=== PATIENT | male | born 1970 | race Caucasian/White ===

== ENCOUNTER 2023-12-20 04:06 | Day surgery (SDC) | payer OTHER ==
[~2023-12-20] VITALS: Ht 182.9 cm; Wt 102.3 kg
[2023-12-20] VITALS (218 sets, daily range): BP systolic 87–169; BP diastolic 44–129
--- NOTE | 2023-12-20 07:00 | NUR ---
Patient arrived to the ANR suite, identification and demographics confirmed. Patient to room 9, AAO, ambulatory, vitals obtained, ID/allergy/fall bands placed, changed into hospital gown, ARUN hose, and non-slip socks. Procedure and timeline explained for treatment and discharge. All questions answered and the patient presents no concerns at this time.
[2023-12-20] MEDS ORDERED: SCOPOLAMINE 1.5 MG DIS TD PRN (07:30)
[2023-12-20] MEDS ORDERED: PANTOPRAZOLE SODIUM Sesquihydr 40 MG/TAB PO PRN (07:30)
[2023-12-20] MEDS ORDERED: ALBUTEROL SULFATE 2.5 MG VIAL IN PRN (07:30)
[2023-12-20] MEDS ORDERED: LACTATED RINGER'S 1,000 ML IV PRN ×3 (07:30→19:00)
[2023-12-20] MEDS ORDERED: diazePAM 5 MG/TAB PO PRN ×2 (07:30→08:30)
[2023-12-20] MEDS ORDERED: cloNIDine HCL 0.1 MG/TAB PO PRN (07:30)
[2023-12-20] MEDS ORDERED: CYANOCOBALAMIN 500 MCG/TAB ( B12) PO PRN (07:30)
[2023-12-20] MEDS ORDERED: FAMOTIDINE 20 MG/TAB PO PRN (07:30)
--- NOTE | 2023-12-20 07:39 | NUR ---
Dr. Vasquez telephoned with patient intake information including usage, dose, last dose/time taken and initial vital signs. Patient history and allergies reviewed with MD. Orders received for 10 mg PO Valium and 0.2 mg PO Clonidine now. Will reassess per protocol in 1.5 hours and update MD with assessment and vitals.
[2023-12-20] MEDS ORDERED: ASCORBIC ACID 4,000 MG in SODIUM CHLORIDE 0.9% 1,000 ML IV SCH (08:00)
[2023-12-20] MEDS ORDERED: XANAX1 MG PO (08:16)
[2023-12-20] MEDS ORDERED: ATORVASTATIN CA40 MG PO (08:16)
[2023-12-20] MEDS ORDERED: ASPIRIN 81 LOW81 MG PO (08:17)
[2023-12-20] MEDS ORDERED: FISH OIL1000 M1 PO (08:17)
[2023-12-20] MEDS ORDERED: MEGAKRILL (08:18)
[2023-12-20 08:28] LABS: BASO% 0.2 % (0-3); EOS% 1.2 % (0-8); HEMATOCRIT 49.5 % (39.0-50.0); HEMOGLOBIN 16.6 g/dl (14.0-18.0); IMMATURE GRANULOCYTES 0.2 % (0.0-5.0); LYMPH% 6.5 % (15-41); MEAN CELL VOLUME 99.6 fL CALC (80.0-100.0); MEAN CORPUSCULAR HGB 33.4 pG CALC (26.0-32.0); MEAN CORPUSCULAR HGB CONC 33.5 g/dL CAL (32.0-36.0); MONO% 8.2 % (2-13); NEUT# 11.69 thou/uL (1.82-7.42); NEUT% 83.7 % (42-76); RED BLOOD COUNT 4.97 mill/uL (4.70-6.10); RED CELL DISTRI WIDTH 14.6 % (11.5-15.5)
[2023-12-20 08:36] LABS: ALBUMIN 4.3 g/dL (3.2-5.0); BILIRUBIN, TOTAL 0.8 mg/dL (0.2-1.3); CREATININE 0.8 mg/dL (0.7-1.3); TOTAL PROTEIN 7.1 g/dL (6.3-8.2)
[2023-12-20] MEDS ORDERED: PROPOFOL 100 ML IV PRN (08:55)
[2023-12-20] MEDS ORDERED: cloNIDine HYDROCHLORIDE 100 MCG/ML 10 ML INJ IV PRN (08:55)
[2023-12-20] MEDS ORDERED: ONDANSETRON HCl 4 MG/2 ML SDV IV PRN ×3 (08:55→19:00)
[2023-12-20] MEDS ORDERED: OCTREOTIDE ACETATE 100 MCG/VIAL SDV SC PRN (08:55)
[2023-12-20] MEDS ORDERED: diazePAM 5 MG/TAB VT PRN (08:55)
[2023-12-20] MEDS ORDERED: LIDOCAINE HCL 1% (10MG/ML) 100 MG/10 ML MDV IV PRN (08:55)
[2023-12-20] MEDS ORDERED: DEXAMETHASONE SODIUM PHOSPHATE PF 10 MG/ML SDV IV PRN ×2 (08:55→19:00)
[2023-12-20] MEDS ORDERED: MAGNESIUM SULFATE HEPTAHYDRATE 100 ML IV PRN (08:55)
[2023-12-20] MEDS ORDERED: LIDOCAINE HCL 1% (10MG/ML) 100 MG/10 ML MDV VT PRN ×2 (08:55)
[2023-12-20] MEDS ORDERED: STERILE WATER FOR IRRIGATION 1,000 ML BTL IR PRN (08:55)
[2023-12-20] MEDS ORDERED: NALTREXONE HCL 50 MG/TAB VT PRN (08:55)
[2023-12-20] MEDS ORDERED: PROPOFOL 10 MG/ML 100ML VIAL IV PRN (08:55)
[2023-12-20] MEDS ORDERED: cloNIDine HCL 0.1 MG/TAB VT PRN (08:55)
[2023-12-20] MEDS ORDERED: THIAMINE HCL 100 MG/ML 2ML VIAL IV PRN (08:55)
[2023-12-20] MEDS ORDERED: SUCCINYLCHOLINE CHLORIDE 20 MG/ML 10ML VIAL IV PRN (08:55)
[2023-12-20] MEDS ORDERED: DiphenhydrAMINE HCL 50 MG/ML SDV IV PRN (08:55)
[2023-12-20] MEDS ORDERED: POTASSIUM CHLORIDE 20 MEQ/100 ML BAG IV PRN (08:55)
[2023-12-20] MEDS ORDERED: MIDAZOLAM HCL 2 MG/2 ML VIAL IV PRN (08:55)
[2023-12-20] MEDS ORDERED: ROCURONIUM BROMIDE 10 MG/ML 5ML VIAL IV PRN (08:55)
--- NOTE | 2023-12-20 09:32 | NUR ---
Patient resting comfortably in bed. Easily aroused, maintains focus, and drifts back to sleep. No signs of active withdrawal or distress noted at this time. Continuous SPO2, rhythm, and respiratory monitoring initiated. IVF @ 250 mL/HR, room air, VSS.
[2023-12-20] MEDS ORDERED: PHENYLEPHRINE HCL 10 MG/ML VIAL ONE (10:28)
[2023-12-20] MEDS ORDERED: SODIUM CHLORIDE 0.9% 250 ML IV ONE (10:28)
--- NOTE | 2023-12-20 11:15 | NUR ---
DR. WALLIS AT BEDSIDE TO DISCUSS POC AND PROCEDURE.
--- NOTE | 2023-12-20 11:25 | NUR ---
Induction Note Patient to [facility]R procedure room. Time out performed at 1118. Patient placed on monitors, Pan hugger, bilateral wrist restraints applied for ET tube protection. Versed 5mg given IV push at 1119 Tourniquet applied to right arm Lidocaine 100mg given at 1120 IV push followed by Rocoronium 10mg at 1121 IV push and held for 90 seconds. Propofol bolus of 200mg given at 1123 IV push. Succinylcholine 200mg given IV push at 1124. Smooth intubation with 7.5 ETT. Positive CO2. Positive Auscultation for air exchange. ET tube secured with tape by Dr. Vasquez 23 @ the lip. Patient placed on ventilator for spontaneous ventilation. Placed on Propofol IV drip at 1125. OG inserted. Positive air on auscultation. Positive gastric content. Stomach washed at this time.
--- NOTE | 2023-12-20 11:35 | NUR ---
OG close note Stomach washed at this time. Naltrexone 50 mg with Clonidine 0.3 mg via OG tube. OG will be clamped for 45 minutes.
--- NOTE | 2023-12-20 12:20 | NUR ---
OG open note OG open at this time. Gastric content draining into drainage bag. OG to drain for 45 minutes. Propofol will be titrated down based on patient.
--- NOTE | 2023-12-20 13:05 | NUR ---
OG close note Stomach washed at this time. Naltrexone 50 mg with Clonidine 0.2 mg via OG tube. OG will be clamped for 45 minutes.
--- NOTE | 2023-12-20 14:35 | NUR ---
OG close note Stomach washed at this time. Naltrexone 50 mg with Clonidine 0.2 mg via OG tube. OG will be clamped for 45 minutes.
[2023-12-20] MEDS ORDERED: NALTREXONE50 MG PO (14:46)
[2023-12-20] MEDS ORDERED: CLONIDINE0.1 MG PO (14:47)
[2023-12-20] MEDS ORDERED: KLONOPIN2 MG PO (14:47)
--- NOTE | 2023-12-20 17:00 | NUR ---
OG close note Stomach washed at this time. Naltrexone 12.5 mg, Valium 10mg, and Clonidine 0.2 mg via OG tube. OG will be clamped for 30 minutes for closing dose.
[2023-12-20] MEDS ORDERED: PROMETHAZINE HCL 12.5 MG in SODIUM CHLORIDE 0.9% 50 ML IV PRN (19:00)
[2023-12-20] MEDS ORDERED: PROMETHAZINE HCL 25 MG in SODIUM CHLORIDE 0.9% 50 ML IV PRN (19:00)
[2023-12-20] MEDS ORDERED: HALOPERIDOL LACTATE 5 MG/ML SDV IV PRN (19:00)
[2023-12-20] MEDS ORDERED: KETOROLAC TROMETHAMINE 30 MG/ML SDV IV PRN (19:00)
[2023-12-20] MEDS ORDERED: LORazepam 2 MG/ML IV PRN ×2 (19:00)
[2023-12-20] MEDS ORDERED: ACETAMINOPHEN 500 MG TAB PO PRN (19:00)
[2023-12-20] MEDS ORDERED: ACETAMINOPHEN 1,000 MG/100 ML VIAL IV PRN (19:00)
--- NOTE | 2023-12-20 19:40 | NUR ---
SPOKE TO PT'S . ANSWERED QUESTIONS AND EXPLAINED NEXT STEPS AND PLAN OF CARE.
--- NOTE | 2023-12-20 20:00 | NUR ---
PT TRANSFERRED VIA BED TO RM 283 @1925. PT PRESENTS VERY DROWSY AND DISORIENTED. HAS TRIED ROLLING OR CLIMBING OVER BED RAILS. PT PULLED OUT IV IN RAC, CATHETER WAS INTACT. PT WILL NOT KEEP NASAL CANNULA ON, BECOMES COMBATIVE WHEN TRYING TO REPLACE. PT O2 SATURATION >92% RM AIR. NO S/S OF DISTRESS. SUCTION USED TO CLEAR OUT ORAL CAVITY OF SECRETIONS, PT NOT ABLE TO PRODUCE DEEP COUGHS AT THIS TIME. ASSESSMENT COMPLETED, SECOND IV SITE USED FOR IV FLUIDS. BED ALARM ON AND SAFETY PRECAUTIONS IN PLACE.
[2023-12-20] MEDS ORDERED: NICOTINE TRANSDERMAL 21 MG/PATCH TD SCH (21:00)
[2023-12-20] MEDS ORDERED: PATIENT' OWN MED CONTROLLED 1 EA DOSE IV PRN (21:00)
[2023-12-20] MEDS ORDERED: cloNIDine HCL 0.1 MG/TAB PO SCH (23:00)
[2023-12-20] MEDS ORDERED: clonazePAM 1 MG/TAB PO PRN (23:00)
--- NOTE | 2023-12-20 23:32 | NUR ---
SEISMOGRAPHER ASSISTED AUDIT DIRECTOR WITH HELPING PT STAND ON SIDE OF BED AND USE URINAL. PT STANCE WAS STRONG, HOWEVER DID NOT KEEP EYES OPEN. PT STILL PRESENTS VERY DROWSY, BUT ABLE TO MAKE NEEDS KNOWN. DENIES ANY N/V/P AT THIS TIME. ASSISTED BACK INTO BED WITH BEAR CASIEGGER FOR WARTH. IV SITE APPEARS HEALTHY AND INTACT WITH FLUIDS RUNNING PER EMAR. BED ALARM ON. NO S.S OF DISTRESS AND SAFETY PRECAUTIONS IN PLACE.
[2023-12-21 03:46] VITALS: BP 148/70
[2023-12-21] MEDS ORDERED: clonazePAM 1 MG/TAB PO PRN ×2 (04:00→08:00)
[2023-12-21] MEDS ORDERED: cloNIDine HCL 0.1 MG/TAB PO PRN (04:00)
--- NOTE | 2023-12-21 04:36 | NUR ---
PT PULLED OUT IV IN LFA. TWO NEW IV'S WERE PLACED WHICH PT PULLED OUT. PT HAS NO IV ACCESS AT THIS TIME DUE TO CONTINUE TO PULLING THEM OUT. PT UNINTERESTED IN EDUCATION AND REINFORCEMENT TO NOT PULL IV ACCESS OUT.
[2023-12-21 05:45] LABS: BASO% 0.1 % (0-3); HEMATOCRIT 49.6 % (39.0-50.0); HEMOGLOBIN 16.8 g/dl (14.0-18.0); IMMATURE GRANULOCYTES 0.2 % (0.0-5.0); LYMPH% 5.9 % (15-41); MEAN CELL VOLUME 97.3 fL CALC (80.0-100.0); MEAN CORPUSCULAR HGB 32.9 pG CALC (26.0-32.0); MEAN CORPUSCULAR HGB CONC 33.9 g/dL CAL (32.0-36.0); MONO% 2.3 % (2-13); NEUT# 11.87 thou/uL (1.82-7.42); NEUT% 91.5 % (42-76); RED BLOOD COUNT 5.1 mill/uL (4.70-6.10); RED CELL DISTRI WIDTH 14.1 % (11.5-15.5)
[2023-12-21 06:15] LABS: ALBUMIN 4.3 g/dL (3.2-5.0); BILIRUBIN, TOTAL 0.9 mg/dL (0.2-1.3); CREATININE 0.7 mg/dL (0.7-1.3); MAGNESIUM 1.9 mg/dL (1.6-2.3); POTASSIUM 4.1 mmol/l (3.5-5.1); TOTAL PROTEIN 7.1 g/dL (6.3-8.2)
[2023-12-21] MEDS ORDERED: PANTOPRAZOLE SODIUM Sesquihydr 40 MG/TAB PO SCH (08:00)
[2023-12-21] MEDS ORDERED: MAGNESIUM SULFATE HEPTAHYDRATE 50 ML IV SCH (08:00)
[2023-12-21] MEDS ORDERED: cloNIDine HCL 0.1 MG/TAB PO SCH ×2 (08:00)
[2023-12-21] MEDS ORDERED: NALTREXONE HCL 50 MG/TAB PO SCH (08:00)
[2023-12-21] MEDS ORDERED: ACETAMINOPHEN 325 MG/TAB PO SCH (08:00)
[2023-12-21 08:30] VITALS: BP 142/55
--- NOTE | 2023-12-21 08:50 | NUR ---
patient a/o x3; room air; breathing unlabored and even; denied any n/d/v at this time; patient conplaint of his back hurting, medicated with toradol per EMAR; two new iv sites was applied; reattached LR @100; patient tolerated his morning medication with no issues; denied wanting to eat at this time; patient did ambulate to bathroom with steady gait, stand by assit; no s/s of withdrawals noticed at this time; call light within reach, educated patient on to use it when needed; personal item in ANR locker;warmer in bed with patient; bed in lowest postion; bed alarm activated
--- NOTE | 2023-12-21 08:55 | NUR ---
patient attempting to remove iv; educated patient on the importance of needing iv in case of medication admin and for fluids, patient states he understand, saftey measures in place
[2023-12-21] MEDS ORDERED: Cholecalciferol 2,000 UNIT/TAB PO PRN (09:00)
[2023-12-21] MEDS ORDERED: MAGNESIUM OXIDE 400 MG/TAB PO PRN (09:00)
[2023-12-21] MEDS ORDERED: ACETAMINOPHEN 500 MG TAB PO PRN (09:00)
--- NOTE | 2023-12-21 10:32 | NUR ---
patient was educated to try to keep iv sites, patient just pulled both iv site out again, refused to keep them in stating that he does not want them in; educated patient that he would need to stay hydrated to reduce the risk of dehydation patient ambulated to bathroom to take a shower, Lynn BOURGEOIS just came to see patient
--- NOTE | 2023-12-21 12:44 | NUR ---
patient a/o x3; room air; no s/s of distress; patient waiting on to come for discharge, patient asked several times when he can leave educated patient on POC and dishcharge; no iv sites; patient tolerated a small amount of lunch with no issues; his personal items within reach, patient getting dressed at this time; call light within reach,verbalized understanding on how to use, personal items within reach, bed in lowest postion; bed alarm activated
--- NOTE | 2023-12-21 13:33 | NUR ---
patient a little upset stating that he is ready to go, walked in hallway with writter attempting to go out back door, with some encouragment and redircting patient was directed to walk more in hallway to by time; patient was not happy that his was not here yet, was called to reassure patient that she was coming, patient walked back to bed, encouraged to rest until she gets here, safety measures in place
--- NOTE | 2023-12-21 14:19 | NUR ---
IV site discontinued, cath intact. No edema , no redness, voices no discomfort. Discharge instructions given. Patient verbalizes understanding of same. Discharged in stable condition via Ambulatory to Home with family. All belongings sent with pt.
== END 2023-12-21 14:19 | disposition home or self-care (01) | DRG 897 ==
LOC: MS2 04:06 → ANR 04:06
PROVIDERS: ATTEND Anesthesiology Critical Care Medicine
DX: F11.20 Opioid dependence, uncomplicated (principal)
CPT/HCPCS: J1100; J2354; J3475